=== PATIENT | female | born 1960 | race Caucasian/White ===

== ENCOUNTER 2019-12-26 08:03 | Outpatient (NON) | payer OTHER, SELFPAY ==
[2019-12-27 01:07] LABS: SARS-CoV-2 RNA PCR Negative
== END 2019-12-26 08:04 ==
LOC: ANHCOVIDDT 08:04
PROVIDERS: PCP Family Medicine; Visit Provider Family Medicine
DX: R52 Pain, unspecified (principal); Z20.828 Contact with and (suspected) exposure to other viral communicable diseases
CPT/HCPCS: 87635; C9803; U0003

== ENCOUNTER 2020-01-11 06:42 | Outpatient (NON) | payer OTHER, SELFPAY ==
[2020-01-13 21:25] LABS: SARS-CoV-2 RNA PCR Positive
== END 2020-01-11 06:43 ==
LOC: ANHCOVIDDT 07:05
PROVIDERS: PCP Family Medicine; Visit Provider Physician Assistant
DX: U07.1 COVID-19 (principal)
CPT/HCPCS: 87635; C9803; U0003

== ENCOUNTER → 2020-06-08 11:00 | Outpatient (CLI) | payer OTHER, SELFPAY ==
--- NOTE | ~2020-06-08 | XR_ITS ---
EXAMINATION: XR chest 2V DATE: 06/08/2020 11:25 INDICATION: Shortness of breath. TECHNIQUE: Frontal and lateral views of the chest were obtained. COMPARISON: CT abdomen 11/03/2006 FINDINGS: There is mild atelectasis in basilar left lower lobe. No pleural effusion or pneumothorax. The heart size is normal. IMPRESSION: 1. Mild atelectasis in basilar left lower lobe. Reviewed, dictated and finalized at location B.
== END ==
PROVIDERS: PCP Family Medicine; Visit Provider Physician Assistant
DX: R06.02 Shortness of breath (principal); R91.8 Other nonspecific abnormal finding of lung field
CPT/HCPCS: 71046